=== PATIENT | male | born 1955 | race Caucasian/White ===

== ENCOUNTER → 2016-10-16 | Outpatient (CLI) | payer OTHER ==
[~2016-10-16] MED LIST: ADVAIR 100-501 EAC1 IH; ALBUTEROL17 GM IN; ALBUTEROL17 GM INH; AMITRIPTYLINE H50 MG PO; AMITRYPTYLINE PO; ASPIRIN PO; ASPIRIN81 M2 PO; AUGMENTIN PO; BLOOD THINNER; BP MED; BRILINTA90 MG PO; CADUET 10 MG/101 TAB PO; CALCITRIOL0.25 MC1 PO; CARAFATE1 G PO; CHOLESTEROL MED; COMBIVENT INH14.7 GM INH; COREG6.25 MG PO; INHALERS; LEVAQUIN PO; LIPITOR; LIPITOR20 MG PO; LISINOPRIL; LOPID600 MG PO; LORTAB 5-325 M1 EACH PO; LORTAB 7.5-5001 TAB PO; MAG-OX 400400 M1 PO; MAG-OXIDE400 MG PO; METOCLOPRAMIDE H5 MG PO; MUCINEX DM ER1 EACH PO; NEXIUM PO; NORVASC PO; NORVASC10 MG PO; OMNICEF300 MG PO; PANTOPRAZOLE SO40 MG PO; PHENERGAN PO; PHENERGAN25 M1 PO; PREDNISONE PO; PROMETHAZINE HC25 MG PO; PROTONIX PO; QVAR7.3 G1 INH; SIMVASTATIN40 MG PO; SPIRIVA18 MCG INH; SPIRIVA18 MCG PO; SYMBICORT 160/4.6 G1 INH; TESSALON200 MG PO; TUSSIONEX PENN473 ML PO; WELLBUTRIN XL; ZOCOR PO; ZOFRAN ODT4 MG PO; ZOFRAN ODT4 MG SL; ZUPLENZ4 MG PO
== END | disposition home or self-care (01) ==
LOC: CRC 07:59
DX: R06.02 Shortness of breath (principal)
CPT/HCPCS: 94060; 94726; 94729